=== PATIENT | male | born 1980 | race Two or more races ===

== ENCOUNTER 2017-04-16 14:09 | Emergency (ER) | payer MEDICAID ==
[2017-04-16] MEDS ORDERED: IBUPROFEN 800 MG TABLET PO STA (14:30)
[2017-04-16] MEDS ORDERED: DEXAMETHASONE 10 MG/ML VIAL PO STA (14:30)
--- NOTE | 2017-04-16 14:32 | ED Physician Documentation ---
History of Present Illness - Stated complaint Stated Complaint: RT ARM PX - Chief complaint Chief Complaint: Ext Problem - History obtained from History obtained from: Patient - History of Present Illness Timing: How many days ago (several) Pain level max: 8 Pain level now: 6 Quality: sharp Improved by: rest Worsened by: movement - Additonal information Additional information: Patient works as a final assembly and packing supervisor, painting, concrete, etc. and has pain to the lateral R elbow, occasionally shoots to the hand. Has not taken anything. Is right handed. Review of Systems Constitutional: denies: Fever, Chills GI: denies: Vomiting Musculoskeletal: denies: Neck pain, Back pain Neurologic: denies: Focal weakness, Numbness, Headache PD PAST MEDICAL HISTORY - Past Medical History Past Medical History: No - Past Surgical History Past Surgical History: No - Present Medications Home Medications: Ambulatory Orders Medication Instructions Recorded Confirmed Meloxicam [Mobic] 7.5 mg PO BID PRN #20 tablet 04/16/17 - Allergies Allergies/Adverse Reactions: Allergies Allergy/AdvReac Type Severity Reaction Status Date / Time No Known Drug Allergies Allergy Verified 02/23/16 13:58 - Social History Does the pt smoke?: Yes Smoking Status: Current every day smoker Does the pt drink ETOH?: Yes Does the pt have substance abuse?: Yes - Immunizations Immunizations are current?: No - POLST Patient has POLST: No PD ED PE NORMAL - Vitals Vital signs reviewed: Yes - General General: Alert and oriented X 3, No acute distress - Derm Derm: Warm and dry - Extremities Extremities: Other (R elbow - TTP over lateral epicondyle. NVI. mild swelling. no erythema) - Neuro Neuro: Alert and oriented X 3 - Psych Psych: Normal mood, Normal affect Results - Vitals Vitals: Vital Signs - 24 hr 04/16/17 04/16/17 14:13 14:33 Temperature 36.3 C L Heart Rate 122 H 117 H Respiratory 16 20 Rate Blood Pressure 136/100 H 123/87 H O2 Saturation 98 96 Oxygen O2 Source Room air PD MEDICAL DECISION MAKING - ED course Complexity details: considered differential, d/w patient ED course: Patient is a 37-year-old male who presents to the emergency department what appears to be lateral epicondylitis of the right elbow. No evidence of bursitis , septic joint. Full range of motion present. Neurovascularly intact. No overlying skin changes. Patient is well-appearing, nontoxic. Given a dose of dexamethasone here and will prescribe nonsteroidal anti-inflammatory medications for home. Patient counseled regarding signs and symptoms for which I believe and urgent re-evaluation would be necessary. Patient with good understanding of and agreement to plan and is comfortable going home at this time This document was made in part using voice recognition software. While efforts are made to proofread this document, sound alike and grammatical errors may occur. Departure - Departure Disposition: 01 Home, Self Care Clinical Impression: Lateral epicondylitis of elbow Qualifiers: Laterality: right Qualified Code(s): M77.11 - Lateral epicondylitis, right elbow Condition: Good Instructions: ED Epicondylitis Lateral Elbow Follow-Up: your,doctor in 1 week [Other] Prescriptions: Meloxicam [Mobic] 7.5 mg PO BID PRN #20 tablet PRN Reason: pain Comments: Return if you worsen. This should improve over the next few weeks. You may need physical therapy as well. Your doctor can refer you to a hand surgeon. Your blood pressure was elevated today on check in to the emergency department. This does not mean that you have hypertension, it is a common phenomenon to check into the emergency department and have elevated blood pressure. I recommend that you see your primary care physician within the week to have it rechecked when you're feeling better. Discharge Date/Time: 04/16/17 14:40
[2017-04-16 14:33] VITALS: BP 123/87
[2017-04-16] MEDS ORDERED: CHERRY SYRUP 10 ML UDC PO ONE (14:35)
[2017-04-16] MEDS ORDERED: IBUPROFEN 800 MG TABLET PO ONE (14:35)
[2017-04-16] MEDS ORDERED: DEXAMETHASONE 10 MG/ML VIAL ONE (14:35)
== END 2017-04-16 14:40 | disposition home or self-care (01) ==
LOC: ED 14:09
DX: M77.11 Lateral epicondylitis, right elbow (principal); R03.0 Elevated blood-pressure reading, without diagnosis of hypertension; F17.200 Nicotine dependence, unspecified, uncomplicated
CPT/HCPCS: 99283; A9270

== ENCOUNTER 2018-03-19 10:06 | Emergency (ER) | payer MEDICAID ==
[2018-03-19] MEDS ORDERED: DEXAMETHASONE 10 MG/ML VIAL PO STA (11:13)
--- NOTE | 2018-03-19 11:16 | ED Physician Documentation ---
PD HPI UPPER EXT INJURY - Stated complaint Stated Complaint: ARM PX - Chief complaint Chief Complaint: Ext Problem - History obtained from History obtained from: Patient - History of Present Illness Location: Right, Left, Forearm Type of injury: Other (excessive use) Where injury occurred: Work Timing - onset: Yesterday Timing - duration: Hours Timing - details: Gradual onset, Still present Improved by: Rest, Immobilization Worsened by: Moving, Palpating Associated symptoms: No: Weakness, Numbness Contributing factors: No: Anticoagulated Similar symptoms before: Diagnosis (over use) Recently seen: Not recently seen - Additonal information Additional information: 38-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 He did not feel any pain at the time from that but this morning when he went to go to work he noted his forearms were tense tight and painful with some numbness in his hands. He has had something similar to this previously on the brachial radialis on the left side from overuse. Review of Systems Constitutional: denies: Fever Throat: denies: Sore throat Respiratory: denies: Cough GI: denies: Nausea, Vomiting, Constipation, Diarrhea PD PAST MEDICAL HISTORY - Past Medical History Past Medical History: No - Past Surgical History Past Surgical History: No - Present Medications Home Medications: Ambulatory Orders Medication Instructions Recorded Confirmed Meloxicam [Mobic] 7.5 mg PO BID PRN #20 tablet 04/16/17 - Allergies Allergies/Adverse Reactions: Allergies Allergy/AdvReac Type Severity Reaction Status Date / Time No Known Drug Allergies Allergy Verified 02/23/16 13:58 - Social History Does the pt smoke?: Yes Smoking Status: Current every day smoker Does the pt drink ETOH?: Yes Does the pt have substance abuse?: No - Immunizations Immunizations are current?: Yes Immunizations: TDAP >10years/unknown - POLST Patient has POLST: No PD ED PE NORMAL - Vitals Vital signs reviewed: Yes (hypertensive mild) - General General: Alert and oriented X 3, No acute distress, Well developed/nourished - HEENT HEENT: Atraumatic, PERRL, EOMI - Respiratory Respiratory: No respiratory distress - Derm Derm: Normal color, Warm and dry, No rash - Extremities Extremities: No deformity, No edema, Other (both forearms are firm on the volar surface and with only mild tenderness. He has normal ROM of the elbow wrist and shoulder. 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 He is administered dexamethasone 10 mg orally and is expected to recover fully. During his stay here in the emergency department his pain did improve spontaneously but did not resolve. - Sepsis Event Vital Signs: Vital Signs - 24 hr 03/19/18 10:16 Temperature 37.0 C Heart Rate 95 Respiratory 16 Rate Blood Pressure 145/88 H O2 Saturation 96 Oxygen O2 Source Room air Departure - Departure Disposition: 01 Home, Self Care Clinical Impression: Myofacial muscle pain Condition: Stable Instructions: ED Myofascial Pain Syndrome Follow-Up: Sailaja Dominguez MD [Primary Care Provider] -
[2018-03-19 11:20] VITALS: BP 139/90
== END 2018-03-19 11:22 | disposition home or self-care (01) ==
LOC: ED 10:06
DX: M79.1 Myalgia (principal); M79.632 Pain in left forearm; F17.200 Nicotine dependence, unspecified, uncomplicated
CPT/HCPCS: 99283

== ENCOUNTER 2024-04-04 08:27 | Emergency (ER) | payer MEDICAID ==
[2024-04-04 08:54] VITALS: BP 131/71; O2SAT 100
--- NOTE | 2024-04-04 09:23 | ED Physician Documentation ---
PD HPI OPHTHO - Stated complaint Stated Complaint: SOMETHING STUCK IN LT EYE - Chief complaint Chief Complaint: Heent - History obtained from History obtained from: Patient - Additional information Additional information: Patient is a 44-year-old male presenting for evaluation of a foreign body sensation to the left eye. Patient states he was working in his wood shop last night and went to bed feeling okay but woke up this morning feeling some irritation in the left eye. He did try to irrigate his eye without any improvement. He does not normally wear contacts or glasses. Denies abnormal drainage. Review of Systems Eyes: reports: Irritation. denies: Discharge PD PAST MEDICAL HISTORY - Past Surgical History Past Surgical History: No - Present Medications Home Medications: Ambulatory Orders Medication Instructions Recorded Confirmed Erythromycin Base [Erythromycin 1 appful LEFTEYE 5XD 3 Days #1 gm 04/04/24 Ophthalmic Ointment] - Allergies Allergies/Adverse Reactions: Allergies Allergy/AdvReac Type Severity Reaction Status Date / Time No Known Drug Allergies Allergy Verified 04/04/24 08:35 - Social History Does the pt smoke?: Yes Smoking Status: Current every day smoker Does the pt drink ETOH?: Yes Does the pt have substance abuse?: No - Immunizations Immunizations are current?: Yes Immunizations: TDAP >10years/unknown - POLST Patient has POLST: No PD ED PE NORMAL - General General: Alert and oriented X 3, No acute distress, Well developed/nourished - HEENT HEENT: Atraumatic, PERRL, EOMI, Moist mucous membranes, Pharynx benign - Neck Neck: Supple, no meningeal sign - Respiratory Respiratory: No respiratory distress - Derm Derm: Warm and dry - Neuro Neuro: Normal speech PD ED PE EXPANDED - Eyes Eyes: Visual acuity - see nn, PERRL, EOMI, Normal eyelids, No eyelid FB (everted) (Small superficial abrasion to the left upper outer eyelid.), Injected conj/sclera (L eye), Normal corneas, Anterior chambers clear. No: Corneal FB (Mild to L eye which resolved on reevaluation), Corneal abrasion, Fluorescein uptake, Hyphema Results - Vitals Vitals: Vital Signs - 24 hr 04/04/24 08:32 Temperature 36.6 C Heart Rate 84 Respiratory 16 Rate Blood Pressure 131/71 H O2 Saturation 100 Oxygen O2 Source Room air PD Medical Decision Making - ED course ED course: Patient is a 44-year-old male presenting for evaluation of irritation to the left eye. Visual acuity intact. Eye and eyelid areas were carefully inspected including with eyelid eversion and no signs of a foreign body found. There is no tearing to the eye. Initially the left eye had a conjunctival injection but after application of proparacaine drops and on reevaluation this had a apparently cleared up. Patient did report irrigating his eye just prior to arrival with water. No signs of corneal abrasion or ulcer. Globes are soft with no signs of rupture or increased intraocular pressure. There is a small Superficial abrasion present to the left upper outer eyelid area measuring 2 to 3 mm. This may be the source of discomfort. Will place on ophthalmic antibiotics for few days. Patient counseled on concerning symptoms to return for. Departure - Departure Disposition: 01 Home, Self Care Clinical Impression: Irritation of left eye Condition: Stable Instructions: ED Conjunctivitis Nonspecific Prescriptions: Erythromycin Base [Erythromycin Ophthalmic Ointment] 1 appful LEFTEYE 5XD 3 Days #1 gm Comments: There appears to be a small abrasion to the inner left eyelid. I do not see signs of A foreign body or abrasion or ulcer to the eye. I believe this is causing the abnormal sensation in your eye. I will place you on an antibiotic ointment for the next few days and I would recommend using cool compresses. If anything gets worse such as continued discomfort, changes to your vision, abnormal discharge, swelling then please return to the emergency department. I have sent a prescription to [facility] in [place]. Forms: PCP List, Activity restrictions Discharge Date/Time: 04/04/24 09:26
== END 2024-04-04 09:26 | disposition home or self-care (01) ==
LOC: ED 08:27
DX: S00.212A Abrasion of left eyelid and periocular area, initial encounter (principal); H57.89 Other specified disorders of eye and adnexa; X58.XXXA Exposure to other specified factors, initial encounter; Y93.89 Activity, other specified; Y92.008 Other place in unspecified non-institutional (private) residence as the place of occurrence of the external cause; F17.200 Nicotine dependence, unspecified, uncomplicated
CPT/HCPCS: 99282; 99283